=== PATIENT | male | born 1965 | race Two or more races ===

== ENCOUNTER 2024-12-17 06:21 | Day surgery (SDC) | payer BC, SELFPAY | END 2024-12-17 12:49 | disposition home or self-care (01) | LOC: GI 06:21 | PROVIDERS: ATTENDING PHYSICIAN Internal Medicine Gastroenterology | DX: Z12.11 Encounter for screening for malignant neoplasm of colon (principal); K64.8 Other hemorrhoids; D12.0 Benign neoplasm of cecum; D12.3 Benign neoplasm of transverse colon | CPT/HCPCS: 45385; 88305 ==